=== PATIENT | male | born 1950 | race Caucasian/White ===

== ENCOUNTER 2018-08-16 01:23 | Emergency (ER) | payer MEDICARE, OTHER, SELFPAY ==
--- NOTE | 2018-08-16 01:25 | ED.SOB ---
HPI - SOB/Dyspnea General Chief Complaint: Shortness of Breath/Dyspnea Stated Complaint: difficulty breathing, has a cold Time Seen by Provider: 08/16/18 01:25 Source: patient Mode of arrival: ambulatory Limitations: no limitations History of Present Illness Patient is a 68-year-old male with a history of COPD not on home oxygen here for evaluation of shortness of breath. Patient states that has been going on for the past 24-48 hours. States that he has been having low-grade fevers. Has been having clear sputum but he does not think that is more than normal. Does have an albuterol inhaler at home which he has been using which helps his symptoms for very short period of time. He does not have a nebulizer at home. He states that he is having some chest pain but only with coughing. No abdominal pain. He states that he still is smoking. No recent travel Related Data Home Medications Medication Instructions Recorded Confirmed albuterol sulfate 2 puff INHALATION Q4-6H PRN 08/16/18 08/16/18 Previous Rx's Medication Instructions Recorded prednisone 40 mg PO DAILY 7 Days #14 tab 08/16/18 Allergies Allergy/AdvReac Type Severity Reaction Status Date / Time No Known Drug Allergies Allergy Verified 08/16/18 01:36 Review of Systems Constitutional Denies fever(s) and Denies headache(s) ENT Ears, Nose, Mouth, and Throat: Denies vertigo and Denies headache(s) Cardiovascular Reports chest pain (Only with coughing), Denies palpitations and Reports dyspnea Respiratory Reports dyspnea and Reports wheezing Gastrointestinal Gastrointestinal: Denies abdominal pain, Denies constipation, Denies diarrhea, Denies nausea and Denies vomiting Genitourinary Denies dysuria Musculoskeletal Denies myalgias and Denies arthralgias Integumentary/Breasts Denies rash and Denies wounds Neurologic Denies vertigo and Denies headache(s) Endocrine Denies palpitations Hematologic/Lymphatic Denies easy bleeding and Denies easy bruising Allergic/Immunologic Reports wheezing [facility] Medical History COPD (chronic obstructive pulmonary disease) (Acute) Surgical History No pertinent past surgical history (Acute) Social History Smoking Status: Current every day smoker Exam Initial Vital Signs Initial Vital Signs: Vital Signs Temperature 98.1 F 08/16/18 01:34 Pulse Rate 85 08/16/18 01:34 Respiratory Rate 22 08/16/18 01:34 Blood Pressure 155/85 H 08/16/18 01:34 Pulse Oximetry 97 08/16/18 01:34 Const General: cooperative, well developed, well groomed and No acute distress Orientation: alert, awake and oriented x3 HENMT Head: normal to inspection and normocephalic Resp Effort & Inspection: abnormal respiratory pattern, no audible wheezes, labored, no nasal flaring, pursed lip breathing, no retractions, tachypneic, no use of accessory muscles and symmetric chest movement Auscultation: rhonchi upper bilaterally and lower bilaterally and wheezes inspiratory wheezes Cardio Rate: regular rate Rhythm: regular rhythm Pulses: radial pulses present GI Inspection: non-distended Palpation: soft, No firm and No tender Skin Lesions: no lesions Rashes: no rashes Neuro General: alert, awake and oriented x3 Extrem General: normal to inspection, capillary refill normal, no pedal edema and No edema Psych Appearance: grossly normal and well kempt Course Orders Ordered: ED Orders 08/16/18 01:32 XR chest 1V Stat EKG-12 Lead Stat Discontinued Medications Albuterol/Ipratropium (Duoneb) 3 ml INH NOW ONE Stop: 08/16/18 01:32 Last Admin: 08/16/18 01:42 Dose: 3 ml Albuterol/Ipratropium (Duoneb) 3 ml INH NOW ONE Stop: 08/16/18 01:32 Last Admin: 08/16/18 01:47 Dose: 3 ml Albuterol/Ipratropium (Duoneb) 3 ml INH NOW ONE Stop: 08/16/18 02:06 Last Admin: 08/16/18 02:12 Dose: 3 ml Methylprednisolone (Solu-Medrol 125 Mg Vial) 125 mg IV NOW ONE Stop: 08/16/18 01:33 Last Admin: 08/16/18 01:49 Dose: 125 mg Vital Signs - 8 hr 08/16/18 01:34 08/16/18 01:42 08/16/18 02:14 Temperature 98.1 F Pulse Rate 85 Respiratory Rate 22 Blood Pressure 155/85 H Blood Pressure [Left Arm] Pulse Oximetry 97 97 96 08/16/18 02:26 Temperature Pulse Rate 79 Respiratory Rate 15 Blood Pressure Blood Pressure [Left Arm] 127/71 Pulse Oximetry 97 MDM - SOB/Dyspnea Imaging Data Chest x-ray: Attestation: I personally reviewed and interpreted this imaging study as follows: My impression: No focal consolidation Increased bilateral lung markings Normal size heart ECG Data Attestation: I personally reviewed and interpreted this ECG as follows: Prior ECG tracings: not available for review Interpretation: Sinus rhythm Ventricular rate at 80 Normal QRS Normal QTC Right bundle branch block Nonspecific ST T wave changes MDM Narrative Medical decision making narrative: Patient received steroids and 3 DuoNeb here in the emergency department. He expressed a tremendous improvement in his symptoms. Upon my re-evaluation his right lung miller were completely clear with just slight wheezing in the left lung miller. He was not hypoxic. He was observed here in the emergency department without return/worsening of his symptoms. Patient does have albuterol at home. Will send home with a short course of steroids. Will hold on antibiotics for now. Patient was given return precautions. He expressed understanding and agreement with plan. Discharge Plan Departure Patient Disposition: Home Clinical Impression: Acute exacerbation of chronic obstructive airways disease Instructions: Chronic Obstructive Pulmonary Disease, How to Quit Smoking Activity Restrictions/Additional Instructions: While your awake for the next 24 hr I recommend that you take a couple puffs of your albuterol inhaler every 4 hr. Start taking the steroids that you were given a prescription for this evening as directed. Return to the emergency department for any new or worsening symptoms Prescriptions: New prednisone 20 mg tablet 40 mg PO DAILY 7 Days Qty: 14 RF: 0 No Action albuterol sulfate 90 mcg/actuation Hfa Aerosol Inhaler 2 puff INHALATION Q4-6H PRN (Reason: Shortness Of Breath Or Wheezing) RF: 0
--- NOTE | 2018-08-16 01:32 | DI.RAD.S_ITS ---
PROCEDURE: XR CHEST 1V INDICATIONS: Shortness of breath TECHNIQUE: One view of the chest was acquired. COMPARISON: [facility], , CHEST 2 VIEW, 10/05/2017, 10:32. FINDINGS: Surgical changes and devices: None. Lungs and pleura: No pleural effusions or pneumothorax. Lungs are clear. Mediastinum: Mediastinal contours appear normal. Heart size is normal. Bones and chest wall: No suspicious bony lesions. Overlying soft tissues appear unremarkable. IMPRESSION: No acute cardiopulmonary disease process. Dictated by: Holly Mckinnon MD, PhD on 08/16/2018 at 7:25 Approved by: Holly Mckinnon MD, PhD on 08/16/2018 at 7:26
[2018-08-16 01:34] VITALS: BP 155/85; PULSE 85; RESP 22; TEMP 36.7; O2SAT 97; BMI 25.8
[2018-08-16 01:42] VITALS: O2SAT 97
[2018-08-16] MEDS: ALBUTEROL/IPRATROPIUM 3 ML AMPUL INH ×3 (01:42→02:12)
[2018-08-16] MEDS: methylPREDNISolone 125 MG/2 ML VIAL IV (01:49)
--- NOTE | 2018-08-16 01:59 | PC.NURSE ---
pt reports this episode of sob started thursday with a sore throat that moved into his lungs. the says he's never goten this bad this quick before. pt presented with pursed lip breathing and posturing to catch his breath. his hands were cyanotic and he looked pale. after neb treatments he is not sitting comfortably on the stretcher and is no longer purse lip breathing or posturing. he has pinked up and states i feel alot better. that was getting really hard to breath. pt now sitting calmly on stretcher denies any needs.
[2018-08-16 02:14] VITALS: O2SAT 96
[2018-08-16 02:26] VITALS: BP 127/71; PULSE 79; RESP 15; O2SAT 97
[2018-08-16 03:05] VITALS: BP 141/72; PULSE 79; RESP 15; O2SAT 97
--- NOTE | 2018-08-19 16:03 | PC.NURSE ---
follow up call made, pt feeling much better, no questions with dc, pt followed up with primary and no need for improvement. pt very satisfied with service.
== END 2018-08-16 03:07 | disposition home or self-care (01) ==
PROVIDERS: Emergency Provider Emergency Medicine; Family Provider Family Medicine
DX: J44.1 Chronic obstructive pulmonary disease with (acute) exacerbation (principal)
CPT/HCPCS: 36591; 71045; 93005; 94640; 96374; 99282; 99284; J2930

== ENCOUNTER → 2019-09-28 15:11 | Outpatient (CLI) | payer MEDICARE, OTHER, SELFPAY ==
--- NOTE | 2019-09-28 | DI.RAD.S_ITS ---
PROCEDURE: XR RIBS LT MIN 3V W CXR1V INDICATIONS: LEFT RIB PAIN LATERAL TECHNIQUE: 3 views of the left ribs were acquired, along with a single view chest. COMPARISON: None. FINDINGS: Surgical changes and devices: None. Bones and chest wall: Left lateral 9th, 0th and 11th rib fractures are noted. No suspicious bony lesions. Overlying soft tissues appear unremarkable. Lungs and pleura: No pleural effusions or pneumothorax. Lungs appear clear. Mediastinum: Mediastinal contours appear normal. Heart size is normal. IMPRESSION: Left 9th,10th and 11th rib fractures. Dictated by: Holly Mckinnon MD, PhD on 09/28/2019 at 17:49 Approved by: Holly Mckinnon MD, PhD on 09/28/2019 at 17:51
== END ==
PROVIDERS: PCP Family Medicine; Visit Provider Family Medicine
DX: R07.81 Pleurodynia (principal); S22.42XA Multiple fractures of ribs, left side, initial encounter for closed fracture; X58.XXXA Exposure to other specified factors, initial encounter
CPT/HCPCS: 71101

== ENCOUNTER → 2019-12-17 09:37 | Outpatient (CLI) | payer MEDICARE, OTHER, SELFPAY ==
[2019-12-17 10:53] LABS: Hemoglobin A1C% w Est Avg Glu 10.9 % (4.0-6.0)
[2019-12-17 11:10] LABS: Add Manual Diff / Slide Review NO; Alanine Aminotransferase 26 IU/L (<50); Albumin 4.3 g/dL (3.5-5.0); Albumin Globulin Ratio 1.3 (1.0-2.8); Alkaline Phosphatase 129 U/L (38-126); Aspartate Aminotransferase 23 IU/L (17-59); BUN Creatinine Ratio 23.3 (6-22); Basophils Absolute Auto 0 /uL (0-100); Basophils Percent Auto 0.3 % (0-2); Bilirubin Total 0.7 mg/dL (0.2-1.3); Blood Urea Nitrogen 21 mg/dL (9-20); C-Reactive Protein Quant 0.7 mg/dL (<1.0); Calcium 9.1 mg/dL (8.4-10.2); Carbon Dioxide 27 mmol/L (22-32); Chloride 98 mmol/L (98-107); Eosinophils Absolute Auto 100 /uL (0-450); Eosinophils Percent Auto 1.1 % (2-4); Estimated Glomerular Filt Rate > 60.0 mL/min (>60); Globulin 3.2 g/dL (1.7-4.1); Glucose 308 mg/dL (80-110); HEMOLYSIS < 15 (0-50); Hematocrit 47.6 % (41-53); Hemoglobin 16.4 g/dL (13.5-17.5); Lymphocytes Absolute Auto 1200 /uL (1100-4500); Lymphocytes Percent Auto 15.7 % (25-40); Mean Corpuscular HGB Conc 34.5 % (30-36); Mean Corpuscular Hemoglobin 30.3 PG (26-34); Mean Corpuscular Volume 88.1 fL (80-100); Monocytes Absolute Auto 500 /uL (0-900); Monocytes Percent Auto 7.3 % (3-14); Neutrophils Absolute Auto 5500 /uL (1500-7000); Neutrophils Percent Auto 75.6 % (50-75); Platelet Count 187 X10^3/uL (150-400); Potassium 4.7 mmol/L (3.4-5.1); Red Blood Cell Count 5.41 X10^6/uL (4.5-5.9); Red Cell Distribution Width 13.4 % (11.6-14.8); Sodium 137 mmol/L (137-145); Total Protein 7.5 g/dL (6.3-8.2); White Blood Cell Count 7.3 X10^3/uL (4.5-11.0)
[2019-12-17 11:12] LABS: Erythrocyte Sedimentation Rate 5 MM/HR (0-15)
[2019-12-17 14:06] LABS: Cholesterol 229 mg/dL (140-199); HDL Cholesterol 32 mg/dL (40-60); LDL Cholesterol Calculated 155 mg/dL (<100); Triglycerides 209 mg/dL (35-150)
[2019-12-21 08:30] LABS: ANA Screen, IFA NEGATIVE (NEGATIVE)
== END ==
PROVIDERS: PCP Family Medicine; Referring Provider Family Medicine; Visit Provider Family Medicine
DX: K11.7 Disturbances of salivary secretion (principal); L30.0 Nummular dermatitis; L98.9 Disorder of the skin and subcutaneous tissue, unspecified
CPT/HCPCS: 36415; 80053; 80061; 83036; 85025; 85651; 86038; 86140; 86255

== ENCOUNTER → 2020-04-11 15:57 | Outpatient (CLI) | payer MEDICARE, OTHER, SELFPAY ==
--- NOTE | 2020-04-11 | DI.RAD.S_ITS ---
PROCEDURE: XR HIP W PEL IF DONE LT 2V INDICATIONS: Left Hip Pain TECHNIQUE: 2 views of the hip were acquired. COMPARISON: [facility], CR, HIPBILAT 3TO4V W PEL IF PERFD, 05/22/2016, 10:39. FINDINGS: Bones: No fractures or dislocations. No suspicious bony lesions. The visualized pelvic ring appears intact. Mild joint narrowing with periarticular osteophyte formation of the left hip joint similar to prior examination. Soft tissues: No suspicious soft tissue calcifications or masses. Vascular calcifications indicate atherosclerosis. IMPRESSION: Stable mild left hip joint degeneration. Dictated by: David Amaya [facility] Interpreted: Raghu Alan MD on 04/11/2020 at 16:50 Approved by: Raghu Alan M.D. on 04/11/2020 at 17:22
== END ==
PROVIDERS: PCP Family Medicine; Referring Provider Family Medicine; Visit Provider Family Medicine
DX: M25.552 Pain in left hip (principal); M16.12 Unilateral primary osteoarthritis, left hip
CPT/HCPCS: 73502

== ENCOUNTER → 2020-08-27 11:40 | Outpatient (CLI) | payer MEDICARE, OTHER, SELFPAY ==
[2020-08-28 06:50] LABS: COVID19 Sendout Not Detected (Not Detect)
== END ==
PROVIDERS: PCP Family Medicine; Visit Provider Physician Assistant
DX: Z01.812 Encounter for preprocedural laboratory examination (principal)
CPT/HCPCS: 87635

== ENCOUNTER → 2020-08-30 08:57 | Outpatient (CLI) | payer MEDICARE, OTHER, SELFPAY ==
--- NOTE | 2020-09-07 17:25 | PM.PFT.1 ---
Pulmonary Function Test Referral & Results Date Patient Seen: 08/30/20 Requesting provider: Melvina Hernandez Results: The spirometry demonstrates an FVC of 2.80 L which is 66% of predicted. The FEV1 was measured at 0.97 L which is 31% of predicted. The FEV1/FVC ratio was 35 which is 47% of predicted. Following the administration of bronchodilator there was a 23% improvement in FEV1 and a 52% improvement in FEF 25-75%. Lung volumes show an SVC of 2.82 L which is 63% of predicted. The diffusing capacity was measured at 15.96 which is 51% of predicted. No hemoglobin value was provided, so no correction for potential anemia could be made, if appropriate. The maximum voluntary ventilation was reduced Interpretation: This study demonstrates severe obstructive lung disease with FEV1 less than 1 L. There is evidence of significant benefit following bronchodilator based on improvement in FEV1 and FEF 25-75% as above There is also mild restrictive lung disease present based on reduction SVC There is also moderately severe reduction in diffusing capacity suggesting significant disease at the capillary alveolar level Altogether this is consistent with a diagnosis of COPD. Clinical correlation is suggested
== END ==
PROVIDERS: PCP Family Medicine; Referring Provider Student in an Organized Health Care Education/Training Program; Visit Provider Student in an Organized Health Care Education/Training Program
DX: J44.1 Chronic obstructive pulmonary disease with (acute) exacerbation (principal); Z87.891 Personal history of nicotine dependence
CPT/HCPCS: 94060; 94726; 94729

== ENCOUNTER → 2021-03-13 07:11 | Outpatient (CLI) | payer MEDICARE, OTHER, SELFPAY ==
--- NOTE | 2021-03-13 | DI.US.S_ITS ---
PROCEDURE: US ABD AORTA ANEURYSM SCREEN INDICATIONS: CVD TECHNIQUE: Real time scanning was performed of the aorta and iliac arteries, with image documentation. COMPARISON: None. FINDINGS: Aorta: Proximal aortic diameter could not be well visualized due to overlying bowel gas. Mid-aorta measures 3.6 cm AP, 3.2 cm transverse over a fusiform craniocaudad distance of 3.7 cm. There is internal thrombus in this aneurysm measuring the flowing lumen as 1.2 cm. Distal aortic diameter is 1.6 cm. Iliac arteries: Right common iliac artery measures 1.3 cm. Left common iliac artery measures 1.2 cm. IMPRESSION: Mid abdominal aortic aneurysm with maximal axial dimension measuring up to 3.6 x 3.2 cm. No dissection found. The upper 3rd of the aorta could not be well seen due to overlying bowel gas. The iliac arteries are normal in caliber. Dictated by: Raghu Alan M.D. on 03/13/2021 at 10:18 Approved by: Raghu Alan M.D. on 03/13/2021 at 10:28
== END ==
PROVIDERS: PCP Family Medicine; Referring Provider Family Medicine; Visit Provider Family Medicine
DX: Z13.6 Encounter for screening for cardiovascular disorders (principal); I71.4 Abdominal aortic aneurysm, without rupture
CPT/HCPCS: 76706

== ENCOUNTER → 2022-05-15 09:15 | Outpatient (CLI) | payer MEDICARE, OTHER, SELFPAY ==
--- NOTE | 2022-05-15 09:17 | DI.MRI.S_ITS ---
PROCEDURE: MR BRAIN (IAC) WWO CON INDICATIONS: Sensorineural hearing loss, bilateral TECHNIQUE: Noncontrast sagittal T1 spin echo, axial FLAIR, axial gradient echo, axial diffusion and ADC through the brain. Axial thin-slice 3D CISS, coronal TruFISP, axial T1 spin echo with fat saturation through the internal auditory canals. After the administration of contrast, thin slice axial and coronal T1 spin echo with fat saturation through the internal auditory canals, and axial and coronal and sagittal T1 spin echo with fat saturation through the brain. COMPARISON: None. FINDINGS: Image quality: Excellent. Cerebellopontine angles: No cerebellopontine angle masses. Inner ear structures appear normally formed. No suspicious enhancement in the internal auditory canal or along the course of the 7th cranial nerve. CSF spaces: Ventricles are normal in size and shape. No extra-axial fluid collections. Basal cisterns are patent. Brain: Mild age-related cerebral and cerebellar volume loss. There are nonspecific periventricular white matter hyperintensities noted oriented perpendicular to the ventricular surface and associated with low T1 signal. No enhancement. No intracranial bleeds or mass effects. Valdez-white matter interface is intact. No abnormal intracranial enhancement. Diffusion weighted images demonstrate no infarcts. Brainstem appears normal. Normal intravascular flow voids are present. Skull and face: Calvarial marrow signal is normal. Orbits appear normal. Sinuses: Sinuses and mastoids are clear. IMPRESSION: 1. Normal MRI of the internal auditory canals without evidence of acoustic schwannoma. 2. Nonspecific white matter periventricular hyperintensities. Differential considerations include chronic ischemic change, migrainous vasculopathy and small-vessel vasculitis, and less likely a demyelinating disease or sequelae of prior infection or trauma. Approved by: Gucci Pruett M.D. on 05/15/2022 at 10:05
== END ==
PROVIDERS: PCP Family Medicine; Referring Provider Otolaryngology; Visit Provider Otolaryngology
DX: H90.3 Sensorineural hearing loss, bilateral (principal)
CPT/HCPCS: 70553; A9579

== ENCOUNTER → 2023-08-28 10:43 | Outpatient (CLI) | payer MEDICARE, OTHER, SELFPAY ==
--- NOTE | 2023-08-28 | DI.RAD.S_ITS ---
Bone Density Report Name: MATTY RAMIREZ Age: 73 Sex: Male Ethnicity: White Date of : 1950 Indication: osteopenia; prior fracture; Referring Provider: NGHIA RIOJAS Study: Bone densitometry was performed. Exam Date: August 28, 2023 Accession number: [id number] Bone Density: Region BMD T-score Z-score Classification AP Spine(L1-L4) 0.807 -2.2 -1.6 Osteopenia Femoral Neck (Left) 0.485 -3.3 -1.9 Osteoporosis Total Hip (Left) 0.619 -2.6 -1.9 Osteoporosis Femoral Neck (Right) 0.540 -2.8 -1.5 Osteoporosis Total Hip (Right) 0.638 -2.5 -1.8 Osteoporosis Total Hip Mean 0.629 -2.6 -1.9 Osteoporosis World Health Organization criteria for BMD impression classify patients as: Normal (T-score at or above -1.0), Osteopenia (T-score between -1.0 and -2.5), or Osteoporosis (T-score at or below -2.5). 10-year Fracture Risk: FRAX not reported because: Some T-score for Spine Total or Hip Total or Femoral Neck at or below -2.5 Prior hip or vertebral fracture Previous Exams: -- Region Exam Age BMD T-score BMD Change BMD Change Date g/cm2 vs Baseline vs Previous -- AP Spine (L1-L4) 08/28/2023 73 0.807 -2.2 0.048 (6.3%)# 0.004 (0.5%)# 04/15/2010 60 0.803 -2.2 0.044 (5.8%)* 0.044 (5.8%)* 09/14/2007 57 0.759 -2.6 Total Hip(Left) 08/28/2023 73 0.619 -2.6 -0.172 (-21.7%)# -0.170 (-21.5%)# 04/15/2010 60 0.789 -1.3 -0.002 (-0.2%) -0.002 (-0.2%) 09/14/2007 57 0.791 -1.2 Total Hip(Right) 08/28/2023 73 0.638 -2.5 -0.134 (-17.3%)# -0.140 (-18.0%)# 04/15/2010 60 0.778 -1.3 0.006 (0.8%) 0.006 (0.8%) 09/14/2007 57 0.772 -1.4 -- *Denotes significance at 95% confidence level, LSC for AP Spine = 0.022 g/cm2, LSC for Total Hip = 0.027 g/cm2 # Denotes dissimilar scan types or analysis methods Impression: The patient has established osteoporosis, based on the Left Femoral Neck T-score and the existence of a prior fracture. The patient has risk factors, including: previous fracture. No significant bone loss was observed. Discussion: HIGH RISK OF FRACTURE. BONE DENSITY IS UNDESIRABLY LOW AT ONE OR MORE SKELETAL SITES, CONSISTENT WITH OSTEOPOROSIS. This patient's lowest T-score, in a patient who has previously fractured, meets the World Health Organization's (WHO) criteria for severe osteoporosis. In untreated patients, the risk of osteoporotic fracture increases approximately two-fold for each 1.0 SD decrease in T-score. Low bone density is not the only risk factor for fracture; also consider factors such as patient's age, frailty or poor health, risk of falling, risk of injury, previous osteoporotic fracture, family history of osteoporosis, cigarette smoking, low body weight, etc. Not everyone with low bone mineral density has osteoporosis; osteomalacia and other metabolic bone disorders should also be considered. Patients who have osteoporosis should be evaluated for specific diseases and conditions (secondary causes) that may cause or contribute to bone loss. The National Osteoporosis Foundation (NOF) recommends pharmacologic intervention for men with BMD at this level (a T-score of -2.5 or below). The patient should follow a healthful lifestyle (good nutrition with adequate calcium and vitamin D, and appropriate weight-bearing exercise). Follow-Up: Consider a repeat BMD and Vertebral Fracture Assessment (VFA) exam in 2 years or sooner if medically necessary, to reassess this patient's status. Reported by: MAK BRAUN M.D. on 08/28/2023 11:12:00 AM.
== END ==
PROVIDERS: PCP Family Medicine; Referring Provider Family Medicine; Visit Provider Family Medicine
DX: M85.89 Other specified disorders of bone density and structure, multiple sites (principal); M81.0 Age-related osteoporosis without current pathological fracture; M85.88 Other specified disorders of bone density and structure, other site
CPT/HCPCS: 77080

== ENCOUNTER 2025-08-23 09:01 | Emergency (ER) | payer MEDICARE, OTHER, SELFPAY ==
[2025-08-23 09:08] VITALS: BP 160/72; PULSE 75; RESP 16; TEMP 36.4; O2SAT 97; BMI 23.6
--- NOTE | 2025-08-23 09:29 | ED_ITS ---
HPI - Back Pain/Injury General Chief Complaint: Back Pain/Injury Stated Complaint: Lower back pain x 2 days Time Seen by Provider: 08/23/25 09:12 History of Present Illness HPI Narrative: Patient is a 75-year-old male history of COPD presenting today with pain for the last 2 days. He reports he was moving something heavy by the time he got home he was having trouble walking. He has pain in his thoracic back. It takes him a little bit to get up but once he is up he can move but it does hurt. No numbness or tingling weakness in his legs. No loss of bowel or urine no fevers. He took some Aleve at around 5:00 a.m. he says it does help a little. He Did not fall he has no popping. Related Data Home Medications ?Medication ?Instructions ?Recorded ?Confirmed albuterol sulfate 90 mcg/actuation 2 puff inhalation Q 4-6H PRN 08/16/18 08/16/18 aerosol inhaler Shortness Of Breath Or Wheez ing Allergies Allergy/AdvReac Type Severity Reaction Status Date / Time strawberry Allergy Intermediate Swelling Verified 08/23/25 09:14 of the Eye Patient History Medical History (Updated 08/23/25 @ 09:59 by Renee Wheeler DO) COPD (chronic obstructive pulmonary disease) Surgical History No pertinent past surgical history Social History Smoking Status: Current every day smoker Smoking Status: Current every day smoker tobacco type: cigarettes alcohol intake frequency: 0-2 drinks per day Exam Initial Vital Signs Initial Vital Signs: Vital Signs Temperature 97.6 F 08/23/25 09:08 Pulse Rate 75 08/23/25 09:08 Respiratory Rate 16 08/23/25 09:08 Blood Pressure 160/72 H 08/23/25 09:08 Pulse Oximetry 97 08/23/25 09:08 Oxygen Delivery Method Room Air 08/23/25 09:08 GENERAL: Well-appearing, well-nourished and in no acute distress. CARDIOVASCULAR: peripheral pulses in tact, cap refill <2 sec RESPIRATORY: No respiratory distress, speaks in full sentences without difficulty BACK: No vertebral tenderness no step-off he is tender paraspinal muscles on the right side, pain is reproduced with palpation not severe EXTREMITIES: Normal range of motion, no clubbing or edema. Neurovascularly intact NEUROLOGICAL: Cranial nerves II through XII grossly intact. Normal gait and speech. SKIN: Warm, dry, no petechiae, no rashes or lesions. Course Orders Ordered: Discontinued Medications Acetaminophen (Acetaminophen 325 Mg Tablet) 975 mg PO NOW ONE Stop: 08/23/25 09:55 Last Admin: 08/23/25 10:10 Dose: 975 mg Documented By: PAUL Ketorolac Tromethamine (Ketorolac 30 Mg/Ml Vial) 30 mg IM NOW ONE Stop: 08/23/25 09:52 Last Admin: 08/23/25 10:11 Dose: 30 mg Documented By: PAUL Vital Signs Vital signs: Vital Signs - 8 hr 08/23/25 09:08 Temperature 97.6 F Pulse Rate 75 Respiratory Rate 16 Blood Pressure 160/72 H Pulse Oximetry 97 Oxygen Delivery Method Room Air MDM - Back Pain/Injury MDM Narrative Medical decision making narrative: 75-year-old male presenting today with back pain. He is nontender over his vertebrae he did not fall. He is able to stand and ambulate. No fever, no signs of cauda equina. At this time treat conservatively. He is given Toradol and Tylenol here in the ED. Offered a muscle relaxer however declines because he does not tolerate well. At this time no imaging is indicated. Discharge Plan Departure Patient Disposition: Home Clinical Impression: Strain of thoracic back region Instructions: DI for Back Spasm Activity Restrictions/Additional Instructions: *You have been diagnosed with back spasm *What to do: At this time increase activity as tolerated light movement is encourage strenuous activity or heavy lifting is not. Try heating pad and stretching *Continue to take medications as directed Aleve 200-400 mg every every 6-8 hours for [id number] pain Tylenol 1000 mg every 6 hours for [id number] pain *Follow up with your primary care provider in 2-3 days or call [phone] *Return to ER if you should have increasing pain numbness tingling weakness of legs loss of urine or any new, worsening or concerning symptoms Prescriptions: No Action albuterol sulfate 90 mcg/actuation Hfa Aerosol Inhaler 2 puff INHALATION Q4-6H PRN (Reason: Shortness Of Breath Or Wheezing) Referrals: Heriberto Parson MD [Primary Care Provider, Family Practice] Stand Alone Forms: Patient Portal/API
[2025-08-23] MEDS: ACETAMINOPHEN 325 MG TABLET 975 MG PO (10:10)
[2025-08-23] MEDS: KETOROLAC 30 MG/ML VIAL IM (10:11)
== END 2025-08-23 10:20 | disposition home or self-care (01) ==
PROVIDERS: Emergency Provider Emergency Medicine; PCP Family Medicine
DX: S29.012A Strain of muscle and tendon of back wall of thorax, initial encounter (principal); X58.XXXA Exposure to other specified factors, initial encounter
CPT/HCPCS: 96372; 99283; J1885

== ENCOUNTER → 2025-09-08 14:36 | Outpatient (CLI) | payer MEDICARE, OTHER, SELFPAY ==
--- NOTE | 2025-09-08 | DI.RAD.S_ITS ---
PROCEDURE: XR LUMBAR SPINE MIN 4V INDICATIONS: BACK PAIN TECHNIQUE: 5 views of the lumbar spine were acquired, including bilateral oblique views. COMPARISON: None. FINDINGS: Bones: 5 nonrib-bearing vertebrae are present. There is normal bony alignment. Chronic. Height loss of L5. No suspicious bony lesions. Multilevel degenerative changes, most pronounced at L5-S1. Decreased osseous mineralization. Soft tissues: Overlying bowel gas pattern is normal. No suspicious soft tissue calcifications. Atherosclerotic vascular calcifications. Oblique images: No pars defects. IMPRESSION: Moderate degenerative changes at L5-S1, mild elsewhere. Chronic appearing mild height loss of L5. Decreased osseous mineralization. Dictated by: Manolo Velasquez M.D. on 09/09/2025 at 14:42 Approved by: Manolo Velasquez M.D. on 09/09/2025 at 14:43
--- NOTE | 2025-09-08 14:42 | DI.RAD.S_ITS ---
PROCEDURE: XR THORACIC SPINE 3V INDICATIONS: BACK PAIN TECHNIQUE: 3 views of the thoracic spine were acquired. COMPARISON: None. FINDINGS: Bones: No fractures or dislocations. No suspicious bony lesions. 12 pairs of ribs are noted, and appear intact where visualized. Decreased osseous mineralization. Ankylosis of multiple thoracic vertebral bodies. Degenerative changes throughout. Soft tissues: No paravertebral stripe thickening. IMPRESSION: Diffuse ankylosis of the thoracic vertebral bodies, concerning for ankylosing spondylitis. Recommend clinical correlation. Decreased osseous mineralization and degenerative changes. Dictated by: Manolo Velasquez M.D. on 09/09/2025 at 14:43 Approved by: Manolo Velasquez M.D. on 09/09/2025 at 14:44
== END ==
PROVIDERS: PCP Family Medicine; Referring Provider Family Medicine; Visit Provider Family Medicine
DX: M47.817 Spondylosis without myelopathy or radiculopathy, lumbosacral region (principal); M54.50 Low back pain, unspecified; M62.830 Muscle spasm of back; M84.48XS Pathological fracture, other site, sequela; G89.29 Other chronic pain
CPT/HCPCS: 72072; 72110